=== PATIENT | female | born 1990 | race Caucasian/White ===

== ENCOUNTER 2018-10-30 10:23 | Inpatient (IN) | payer OTHER ==
[~2018-10-30] VITALS: Ht 154.9 cm; Wt 93.0 kg
[2018-10-30 10:41] VITALS: Ht 154.9 cm; Wt 93.0 kg
--- NOTE | 2018-10-30 11:01 | NUR ---
PER PT HAS HAD EPIGASTRIC PAIN FOR ONE WEEK. PT STS THAT THE ABDOMINAL PAIN FEELS LIKE A "PRESSURE" PAIN. PT STS THATS HE HAS SOME NAUSEA WITH NO VOMITING. PT STS SHE HAS SOME CONSTIPATION BUT THAT SHE WENT TO HER PCP AND THEY GAVE HER STOOL SOFTENER. UPON PALPATION PT HAS AURELIA UPPER,LLQ ABDOMINAL TENDERNESS. PT DENEIS ANY TEMP OR BODY ACHES. +BOWEL SOUNDS ALL FOUR QUAD. PT DENIES ANY TRAUMA TO ABDOMEN OR BACK. PT STS THATS SHE IS HAVING SOME FLANK PAIN. PT DENIES ANY DYSURIA. PT SPEAKING IN CLEAR AND FULL SENTENCES. VSS. RESP E/U. WILL CONTINUE TO MONITOR.
--- NOTE | 2018-10-30 12:04 | NUR ---
MEDICATED PER EMAR PT AGREED TO MEDICATION ADMIN.
--- NOTE | 2018-10-30 12:11 | NUR ---
PT BEING TAKEN TO XRAY.
--- NOTE | 2018-10-30 12:16 | NUR ---
PT RETURNED FROM XRAY.
--- NOTE | 2018-10-30 12:30 | NUR ---
LAB AT BEDSIDE.
--- NOTE | 2018-10-30 12:38 | NUR ---
PT TAKEN TO CT.
[2018-10-30 13:01] LABS: BASOPHIL % 0.3 % (0-2); PLATELET COUNT 255 x10^3mcL (130-400); RED CELL DISTRIBUTION WIDTH 12.5 % (11.5-14.5)
[2018-10-30 13:29] LABS: ALKALINE PHOSPHATASE 72 U/L (46-116); ALT/SGPT 150 U/L (14-59); AST/SGOT 77 U/L (15-37); BILIRUBIN TOTAL 0.43 mg/dL (0.20-1.00); CALCIUM 7.7 mg/dL (8.5-10.1); CARBON DIOXIDE 23.2 mmol/L (21-32); CHLORIDE SERUM 102 mmol/L (98-107); CREATININE SERUM 0.6 mg/dL (0.6-1.0); GFR1 > 60 mL/min; GLUCOSE SERUM 92 mg/dL (74-106); LIPASE 68 IU/L (73-393); POTASSIUM SERUM 3.4 mmol/L (3.5-5.1); SODIUM SERUM 138 mmol/L (136-145); TOTAL PROTEIN, SERUM 7.4 g/dL (6.4-8.2)
[2018-10-30 13:35] LABS: ALBUMIN 3.3 g/dL (3.4-5.0)
--- NOTE | 2018-10-30 14:37 | NUR ---
REPORT GIVEN TO DANII COTTON TO ASSUME CARE OF THE PT.
--- NOTE | 2018-10-30 15:03 | NUR ---
RECEIVED ORDERS FROM THE ER FOR A STAT BIOPSY OF LIVER MASS SEEN ON CT. THERE IS NO COAG PANEL ORDERED. PER RADIOLOGIST THE PROCEDURE IS NOT CONSIDERED EMERGENT AND THE SPECIMEN WOULD NOT BE PROCESSED UNTIL PATHOLOGIST REGULAR BUSINESS HOURS. SPOKE WITH DR WOODRUFF TO INFORM HIM AND ALSO INFORMED ED CHARGE Hawk BALDWIN. PLACED A CALL TO THE ORDERING PHYSICIAN DR CROWLEY AT 1450 AND AGAIN AT THIS TIME. AWAITING CALLBACK.
[2018-10-30 15:06] VITALS: BP 119/87
--- NOTE | 2018-10-30 15:15 | NUR ---
SPOKE WITH DR CROWLEY TO NOTIFY HIM THAT THE BIOPSY COULD BE PERFORMED DURING REGULAR BUSINESS HOURS. TRANSFERRED HIM TO SPEAK TO DR BOTELLO REGARDING THE SCHEDULING OF THE PROCEDURE.
--- NOTE | 2018-10-30 15:19 | NUR ---
RECEIVED PT FROM ER, PT ADMIT FOR METASTATIC DISEASE, PT IS A/O X4, VERBAL RESPONSIVE, ABLE TO TELL WHAT SHE NEEDS. LUNG SOUND CLEAR BILATERAL, NO COUGH, NO SOB, PT DENY ANY CHEST PAIN OR DISCOMFORT, PT C/O MILD ABD PAIN AT UPPER QUADRANTS, NO DISTENTION, NO TENDER. DENY ANY N/V AT THIS MOMENT, PEDAL PULSE PRESENT BOTH FEET, NO EDEMA, IV AT RIGHT AC, NO LEAKING, NO INFITLRAITON. ALL ADLS ASSIST, ALL NEED MET, CALL LIGHT IN REACH, WILL CONTINUE TO MONITOR.
[2018-10-30 16:03] VITALS: BP 119/87
[2018-10-30 16:53] VITALS: BP 121/79
--- NOTE | 2018-10-30 17:00 | NUR ---
PATIENT IS TO BE D/C HOME TODAY. PT RECEIVED COPY OF D/C INSTRUCTIONS, PATIENT UNDERSTANDS AND AGREES WITH D/C INSTRUCTIONS & POC, INCLUDING F/U WITH PCP & MEDICATIONS. PATIENT RECEIVED COPY OF CD. ALL QUESTIONS & CONCERNS ADDRESSED. IV TO RAC REMOVED, CATH INTACT. ARMBANDS REMOVED. PATIENT TAKEN DOWN BY SUPERINTENDENT TRANSMISSION.
== END 2018-10-30 17:03 | disposition home or self-care (01) | DRG 694 ==
LOC: ED 10:23 → MU 14:22 → EDBEDREQ 14:26 → MU 14:41
PROVIDERS: Specialist; ADMIT Internal Medicine Pulmonary Disease
DX: C79.9 Secondary malignant neoplasm of unspecified site (principal); E44.1 Mild protein-calorie malnutrition; D39.11 Neoplasm of uncertain behavior of right ovary; R59.0 Localized enlarged lymph nodes; K76.9 Liver disease, unspecified; R91.8 Other nonspecific abnormal finding of lung field; E66.9 Obesity, unspecified; Z68.38 Body mass index [BMI] 38.0-38.9, adult
CPT/HCPCS: G0378; J1885